=== PATIENT | male | born 1955 | race Caucasian/White ===

== ENCOUNTER → 2019-03-08 | Day surgery (SDC) | payer OTHER ==
[~2019-03-08] MED LIST: ACETAMINOPHEN 1000 MG/100 ML IV ONE; ACETAMINOPHEN/CODEINE 300MG - 30MG TAB ONE; BUPIVACAINE HCL 0.5% INJ 30 ML VIAL INJ ONE; BUPROPION HCL75 MG PO; CEFAZOLIN SOD 1 GM/NS 50ML 50 ML IV ONE; DEXAMETHASONE SOD PHOS INJ 4 MG/ML VIAL ONE; FENTANYL CITRATE/PF 100MCG/2 ML INJ ONE; KETOROLAC TROMETHAMINE 30 MG/ML VIAL ONE; LIDOCAINE HCL 2% LOCAL INJ 5 ML SDV VIAL INJ ONE; LISINOPRIL10 MG PO; MIDAZOLAM HCL 2 MG/2 ML VIAL ONE; MORPHINE SULFATE INJ 10 MG/ML ONE; MUPIROCIN 2% OINT 22 GM TUBE ONE; ONDANSETRON HCL INJ 2MG/ML 2ML 2 MG/ML VIAL ONE; PROPOFOL IV EMULSION 10 MG/ML 20 ML VIAL ONE; REMERON30 MG PO; SEVOFLURANE INHAL SOLN 250 ML PEN BTL ONE; SUBOXONE 8 MG-1 EAC2 SL
[2019-03-08 09:05] VITALS: BP 160/102
--- NOTE | 2019-03-08 14:32 | Operative Report ---
DATE OF PROCEDURE: 03/08/2019 SURGEON: Nabeel Valle MD PREOPERATIVE DIAGNOSIS: Extensor tendon adhesion, left index finger. POSTOPERATIVE DIAGNOSIS: Extensor tendon adhesion, left index finger. PROCEDURES: Extensor tenolysis, left index finger; and tendon wrapping with implant; partial excision of proximal phalanx, left index finger. ANESTHESIA: General. HISTORY: The patient is a 63-year-old male, who approximately one year ago sustained a chainsaw injury to the dorsal aspect of the left index finger between the MP and the PIP joint. The patient states that he had an open fracture that he underwent repair of both the extensor tendon and the proximal phalanx. Postoperatively, the patient has been plagued by the inability to either flex or extend the index finger due to extreme adhesion of the extensor tendon mechanism. The risks, benefits, and alternatives were discussed with the patient. He is prepared to undergo the procedure as outlined. DESCRIPTION OF PROCEDURE: The patient was marked preoperatively in the holding area. He was brought to the operating theater and after the induction of adequate general anesthesia, he was prepped and draped in the supine position and a time-out was performed. The procedure was begun by marking out the previous incision over the proximal phalanx, it was then extended proximally and distally so that it includes the PIP as well as the MP joint. The left upper extremity was exsanguinated and the tourniquet was inflated to a pressure of 250 mmHg. The incision was begun both proximally and distally in the area of previously injured tissue. The incision was made through the skin and subcutaneous tissues and venous tributaries were controlled with bipolar cautery. Once the deep subcutaneous plane above the extensor tendon mechanism was identified. The zone of injury, skin is incised sharply, using sharp dissection the skin flaps were then elevated off the extensor tendon mechanism, taking care to ensure that adequate thickness to the flaps is maintained to maintain vascularity. Once the flaps were completely elevated off the extensor tendon mechanism. Inspection from the MP to the proximal phalanx of the PIP joint is done. The interval along the radial aspect of the extensor tendon mechanism is identified as is the radial side of the proximal phalanx. An incision was made longitudinally at this point, allowing access to the proximal phalanx. Using a Hoffman elevator, the plane between the extensor tendon mechanism and the cortex of the proximal phalanx is developed. There is quite a number of dense adhesions that was encountered. Once a plane is developed from the radial to the ulnar side of the proximal phalanx. The Hoffman was used to elevate the extensor tendon mechanism from the PIP joint to the MP joint. There is noted to be a marked amount of extraosseous bone, especially on the ulnar side of the proximal phalanx. Once the entire extensor mechanism is elevated, the finger was then placed through a range of motion and several more adhesions were heard to be broken off, but at the completion of the maneuver, the index finger was able to be passively flexed to 270 degrees. Traction on the extensor tendon mechanism allows the finger to extend fully. At this point, the redundant bone on the ulnar side of the proximal phalanx is removed using a rongeur. In order to prevent a recurrence of the adhesions, tendon glide is prepared per manufacturers specification. The implant is soaked in a sterile saline solution and was then placed between the dorsal cortex of the proximal phalanx and the undersurface of the extensor tendon mechanism. The remaining implant is then wrapped over the dorsal aspect of the extensor mechanism to prevent adhesion to the overlying skin. The wound was irrigated with bacteriostatic saline and closed with a 5-0 nylon in interrupted horizontal mattress fashion. A Marcaine field block was performed at the base of the index finger. The tourniquet was deflated. All the fingers pinked up nicely in a sterile bulking conforming bandage including Xeroform gauze and Bactroban ointment was placed on the index finger. The patient was returned to recovery room in satisfactory condition and discharged with a postoperative instruction sheet as well as a followup appointment. MD SABRINA Sterling/STEPHANIEL /[id number]
== END | disposition home or self-care (01) ==
LOC: OR 05:42
PROVIDERS: ATTEND Plastic Surgery
DX: M67.844 Other specified disorders of tendon, left hand (principal); I10 Essential (primary) hypertension
CPT/HCPCS: 26235; 26445; 26989; 93005; J0131; J0690; J1100; J1885; J2001; J2250; J2270; J2405; J2704; J3010